=== PATIENT | male | born 1935 | race Caucasian/White ===

== ENCOUNTER 2016-11-01 03:44 | Inpatient (IN) | payer MEDICARE, OTHER ==
[~2016-11-01] VITALS: Ht 180.3 cm; Wt 76.0 kg
[2016-11-01] MEDS ORDERED: SODIUM CHLORIDE 0.9% 500 ML IVB ONE (10:58)
[2016-11-01 11:33] LABS: Basophils # (auto) 0.1 uL; Basophils % (auto) 0.9 % (0.0-2.0); Eosinophils # (auto) 0.1 uL; Eosinophils % (auto) 1.5 % (0.0-7.0); Hematocrit 41.6 % (41.0-53.0); Hemoglobin 13.5 g/dL (13.5-17.5); Lymphocytes # (auto) 1.2 uL; Mean Corpuscular Hemoglobin 32.8 pg (28.0-32.0); Mean Corpuscular Hgb Conc. 32.5 g/dL (32.0-36.0); Mean Corpuscular Volume 100.7 fL (80.0-100.0); Mean Platelet Volume 7.1 fL (7.4-10.4); Monocytes % (auto) 10.5 % (0.0-12.0); Neutrophils # (auto) 6.9 uL; Neutrophils % (auto) 74.1 % (37.0-80.0); Platelet Count (auto) 257 10^3/uL (140-450); Red Cell Distribution Width 14.1 % (11.6-16.0); White Blood Cell 9.3 10^3/uL (4.4-10.8)
[2016-11-01 11:57] LABS: Albumin 3.2 g/dL (3.4-5.0); BUN/Creatinine Ratio 14.7; Bilirubin, Total 0.5 mg/dL (0.2-1.0); Calcium 9.5 mg/dL (8.5-10.1); Magnesium 2.4 mg/dL (1.6-2.6); Potassium 4.6 mmol/L (3.5-5.1); Total Protein 6.9 g/dL (6.4-8.2)
[2016-11-01] MEDS ORDERED: MORPHINE SULF INJ 2 MG/ML SYRINGE 1ML IV PRN ×2 (12:00)
[2016-11-01] MEDS ORDERED: PROMETHAZINE HCL 25 MG/ML 1ML IV PRN (12:00)
[2016-11-01] MEDS ORDERED: HYDROcodone-ACET 5/325MG TAB PO PRN (12:00)
[2016-11-01] MEDS ORDERED: ACETAMINOPHEN 500 MG TAB PO PRN (12:00)
[2016-11-01] MEDS ORDERED: ALBUTEROL SULF 2.5 MG/0.5ML(0.5%) NEB SOLN NEB PRN (12:00)
[2016-11-01] MEDS ORDERED: LACTULOSE 20Gm/30ML SOLN PO PRN (12:00)
[2016-11-01] MEDS ORDERED: NITROGLYCERIN 0.4 MG SL TAB SL PRN (12:00)
[2016-11-01] MEDS ORDERED: LEVOFLOXACIN 500MG 100 ML IV ONE (12:29)
[2016-11-01] MEDS ORDERED: ASPirin 81 mg TAB PO ONE ×2 (12:30→14:00)
[2016-11-01] MEDS ORDERED: ATE50T PO (13:26)
[2016-11-01] MEDS ORDERED: [UNRECOGNIZED DRUG - CODE] PO (13:31)
[2016-11-01] MEDS ORDERED: CLOP75TA28 PO (13:31)
[2016-11-01] MEDS ORDERED: OMEP20CA5 PO (13:32)
[2016-11-01] MEDS ORDERED: DICL50TA4 PO (13:33)
[2016-11-01] MEDS ORDERED: DILT240C PO (13:34)
[2016-11-01] MEDS ORDERED: AMIT25TA9 PO (13:34)
[2016-11-01] MEDS ORDERED: ATOR1TAB PO (13:35)
[2016-11-01] MEDS ORDERED: TAM04C PO (13:36)
[2016-11-01] MEDS ORDERED: BACL10TA PO (13:36)
[2016-11-01 13:44] LABS: Temperature: 23.1 C (20.0-25.0)
[2016-11-01] MEDS ORDERED: ATENOLOL 50 MG TAB PO ONE (14:00)
[2016-11-01] MEDS ORDERED: CLOPIDOGREL BISULFATE 75 MG TAB PO ONE (14:00)
[2016-11-01] MEDS ORDERED: TAMSULOSIN HYDROCHLORIDE 0.4 MG CAP PO ONE (14:00)
[2016-11-01] MEDS ORDERED: AMITRIPTYLINE HCL 25 MG TAB PO ONE (14:00)
[2016-11-01] MEDS ORDERED: ENOXAPARIN SOD 40 MG/0.4 ML SYRINGE SC ONE (14:00)
[2016-11-01] MEDS ORDERED: DILTIAZEM HCL 180MG ER CAP PO ONE (14:00)
[2016-11-01] MEDS ORDERED: NITROGLYCERIN 6.5 MG PO ONE (14:00)
[2016-11-01] MEDS ORDERED: PANTOPRAZOLE 40 MG TAB PO ONE (14:00)
[2016-11-01] MEDS: BACLOFEN 10 MG TAB PO SCH ×2 (16:16→22:26)
[2016-11-01 17:18] VITALS: BP 159/83
[2016-11-01] MEDS: ALBUTEROL SULF 2.5 MG/0.5ML(0.5%) NEB SOLN NEB SCH (18:48)
[2016-11-01 21:45] VITALS: BP 159/83
[2016-11-01 22:00] VITALS: BP 135/78
[2016-11-01] MEDS ORDERED: DICLOFENAC SODIUM 75 MG PO SCH (22:00)
[2016-11-01] MEDS ORDERED: ATORVASTATIN 20 MG TAB PO SCH (22:00)
[2016-11-01] MEDS: VOLTAREN 75 MG PO SCH (22:00)
[2016-11-01] MEDS: ATORVASTATIN 20 MG TAB PO SCH (22:26)
[2016-11-01] MEDS: TAMSULOSIN HYDROCHLORIDE 0.4 MG CAP PO SCH (22:26)
[2016-11-01] MEDS: ATENOLOL 50 MG TAB PO SCH (22:29)
[2016-11-01] MEDS: ENOXAPARIN SOD 80 MG/0.8ML SYRINGE SC SCH (22:30)
[2016-11-01] MEDS: TEMAZEPAM 15 MG CAP PO PRN (22:37)
[2016-11-01] MEDS: AMITRIPTYLINE HCL 25 MG TAB PO SCH (22:42)
[2016-11-02] MEDS: LORazepam 0.5 MG TAB PO PRN ×2 (00:49→20:04)
[2016-11-02] MEDS: ALBUTEROL SULF 2.5 MG/0.5ML(0.5%) NEB SOLN NEB SCH ×4 (01:10→19:25)
[2016-11-02 05:00] VITALS: BP 133/71
[2016-11-02] MEDS: BACLOFEN 10 MG TAB PO SCH ×3 (07:35→22:14)
[2016-11-02 08:05] VITALS: BP 122/70
[2016-11-02] MEDS: VOLTAREN 75 MG PO SCH ×2 (10:00→22:00)
[2016-11-02] MEDS ORDERED: ENOXAPARIN SOD 40 MG/0.4 ML SYRINGE SC SCH (10:00)
[2016-11-02] MEDS ORDERED: PATIENTS OWN MEDICATION (Atorvastatin Calcium 1 TAB) PO SCH ×2 (10:00)
[2016-11-02] MEDS ORDERED: OMEPRAZOLE 20MG/10ML ORAL SUSP PO SCH (10:00)
[2016-11-02] MEDS ORDERED: LEVOFLOXACIN 250MG 50 ML IV SCH (10:00)
[2016-11-02] MEDS ORDERED: DILTIAZEM HCL 180 MG PO SCH (10:00)
[2016-11-02] MEDS: CLOPIDOGREL BISULFATE 75 MG TAB PO SCH (10:23)
[2016-11-02] MEDS: ENOXAPARIN SOD 80 MG/0.8ML SYRINGE SC SCH (10:23)
[2016-11-02] MEDS: DILTIAZEM HCL 180MG ER CAP PO SCH (10:24)
[2016-11-02] MEDS: PANTOPRAZOLE 40 MG TAB PO SCH (10:25)
[2016-11-02] MEDS: ASPirin 81 mg TAB PO SCH (10:25)
[2016-11-02] MEDS: ATENOLOL 50 MG TAB PO SCH ×2 (10:25→22:16)
[2016-11-02] MEDS: TAMSULOSIN HYDROCHLORIDE 0.4 MG CAP PO SCH ×2 (10:26→22:16)
[2016-11-02] MEDS: AMITRIPTYLINE HCL 25 MG TAB PO SCH ×2 (10:26→22:22)
[2016-11-02] MEDS: NITROGLYCERIN 6.5 MG PO SCH (10:52)
[2016-11-02 17:29] VITALS: BP 118/67
[2016-11-02 21:18] VITALS: BP_SYST 104; BP_SYST 121; BP_SYST 124; BP_DIAS 66; BP_DIAS 70; BP_DIAS 77
[2016-11-02 22:00] VITALS: BP 124/74
[2016-11-02] MEDS: ATORVASTATIN 20 MG TAB PO SCH (22:16)
[2016-11-02] MEDS: TEMAZEPAM 15 MG CAP PO PRN (22:16)
[2016-11-03] MEDS: ALBUTEROL SULF 2.5 MG/0.5ML(0.5%) NEB SOLN NEB SCH ×3 (00:40→13:31)
[2016-11-03 05:00] VITALS: BP 124/64
[2016-11-03] MEDS: BACLOFEN 10 MG TAB PO SCH ×2 (06:07→13:44)
[2016-11-03 08:15] LABS: Urine Bilirubin Negative (Negative); Urine Color Yellow (Yellow); Urine Glucose Normal (Normal); Urine Ketone Negative (Negative); Urine Nitrite Negative (Negative); Urine RBC 12 /hpf (0 - 3); Urine Squamous Epithelial Cell FEW /hpf (<5); Urine pH 6.5 (5.0-8.0)
[2016-11-03 08:16] LABS: Urine Blood 1+ /uL (Negative)
[2016-11-03 09:00] VITALS: BP 112/78
[2016-11-03] MEDS: AMITRIPTYLINE HCL 25 MG TAB PO SCH (09:24)
[2016-11-03] MEDS: PANTOPRAZOLE 40 MG TAB PO SCH (09:25)
[2016-11-03] MEDS: ASPirin 81 mg TAB PO SCH (09:25)
[2016-11-03] MEDS: CLOPIDOGREL BISULFATE 75 MG TAB PO SCH (09:25)
[2016-11-03] MEDS: TAMSULOSIN HYDROCHLORIDE 0.4 MG CAP PO SCH (09:25)
[2016-11-03] MEDS: NITROGLYCERIN 6.5 MG PO SCH (09:26)
[2016-11-03] MEDS: DILTIAZEM HCL 180MG ER CAP PO SCH (09:27)
[2016-11-03] MEDS: ATENOLOL 50 MG TAB PO SCH (09:27)
[2016-11-03] MEDS: VOLTAREN 75 MG PO SCH (09:28)
[2016-11-03 13:00] VITALS: BP 149/71
[2016-11-03] MEDS ORDERED: cefTRIAXone 1GM/50ML D5W 50 ML IV ONE (14:15)
[2016-11-03 15:27] VITALS: BP 112/73
[2016-11-03 17:00] VITALS: BP 107/68
[2016-11-04] MEDS ORDERED: cefTRIAXone 1GM/50ML D5W 50 ML IV SCH (09:00)
== END 2016-11-03 17:45 | disposition home or self-care (01) | DRG 69 ==
LOC: ER 03:46 → TELE 03:47 → TELE-WESTW 14:47
PROVIDERS: ADMIT Internal Medicine; ATTEND Internal Medicine Pulmonary Disease
DX: G45.9 Transient cerebral ischemic attack, unspecified (principal); N39.0 Urinary tract infection, site not specified; I48.92 Unspecified atrial flutter; I25.119 Atherosclerotic heart disease of native coronary artery with unspecified angina pectoris; W18.30XA Fall on same level, unspecified, initial encounter; I73.9 Peripheral vascular disease, unspecified; E78.5 Hyperlipidemia, unspecified; I10 Essential (primary) hypertension; K27.9 Peptic ulcer, site unspecified, unspecified as acute or chronic, without hemorrhage or perforation; N20.0 Calculus of kidney; N40.0 Benign prostatic hyperplasia without lower urinary tract symptoms; Z66 Do not resuscitate; Z82.0 Family history of epilepsy and other diseases of the nervous system; Z82.3 Family history of stroke; Z82.49 Family history of ischemic heart disease and other diseases of the circulatory system; Y93.89 Activity, other specified; Y92.89 Other specified places as the place of occurrence of the external cause; Y99.8 Other external cause status; Z90.89 Acquired absence of other organs; Z98.49 Cataract extraction status, unspecified eye; Z79.899 Other long term (current) drug therapy; Z98.890 Other specified postprocedural states; Z81.8 Family history of other mental and behavioral disorders
CPT/HCPCS: 36415; 70450; 71010; 78582; 80053; 81001; 82550; 82607; 82746; 83735; 84443; 84484; 85025; 85379; 85652; 86141; 87086; 87205; 93005; 93306; 93886; 93970; 94640; 95819; 96361; 96374; 96375; G0434; J0696; J1956

== ENCOUNTER 2016-12-03 02:00 | Emergency (ER) | payer MEDICARE, OTHER ==
[~2016-12-03] VITALS: Ht 177.8 cm; Wt 72.6 kg
[~2016-12-03 02:00] MED LIST: AMIT25TA9 PO; ATE50T PO; ATOR1TAB PO; BACL10TA PO; CLOP75TA28 PO; DICL50TA4 PO; DILT240C PO; OMEP20CA5 PO; TAM04C PO; [UNRECOGNIZED DRUG - CODE] PO
[2016-12-03 04:34] LABS: Urine RBC None Seen /hpf (0 - 3)
[2016-12-03 05:20] LABS: Urine Bilirubin Negative (Negative); Urine Blood Negative /uL (Negative); Urine Color Yellow (Yellow); Urine Glucose Normal (Normal); Urine Ketone Negative (Negative); Urine Nitrite Negative (Negative); Urine Urobilinogen Normal (Negative)
[2016-12-03 05:26] LABS: Basophils # (auto) 0 uL; Basophils % (auto) 0.2 % (0.0-2.0); Eosinophils # (auto) 0.1 uL; Eosinophils % (auto) 0.9 % (0.0-7.0); Hematocrit 47.8 % (41.0-53.0); Hemoglobin 15.4 g/dL (13.5-17.5); Lymphocytes # (auto) 1.2 uL; Mean Corpuscular Hemoglobin 32.5 pg (28.0-32.0); Mean Corpuscular Hgb Conc. 32.2 g/dL (32.0-36.0); Mean Corpuscular Volume 100.8 fL (80.0-100.0); Mean Platelet Volume 7.5 fL (7.4-10.4); Monocytes # (auto) 0.4 uL; Monocytes % (auto) 4.3 % (0.0-12.0); Neutrophils # (auto) 8.2 uL; Neutrophils % (auto) 82.6 % (37.0-80.0); Platelet Count (auto) 249 10^3/uL (140-450); Red Cell Distribution Width 14.7 % (11.6-16.0); White Blood Cell 9.9 10^3/uL (4.4-10.8)
[2016-12-03 05:38] LABS: Albumin 3.7 g/dL (3.4-5.0); BUN/Creatinine Ratio 17.8; Calcium 9.2 mg/dL (8.5-10.1); Potassium 4.1 mmol/L (3.5-5.1)
[2016-12-03 05:41] LABS: Bilirubin, Total 0.5 mg/dL (0.2-1.0); Total Protein 7.2 g/dL (6.4-8.2)
[2016-12-03 07:54] VITALS: BP 144/65
[2016-12-04 15:10] LABS: PSA Free 0.15 ng/mL; Prostate Specific Antigen 0.6 ng/mL (0.0-4.0)
== END 2016-12-03 08:37 | disposition home or self-care (01) ==
LOC: ER 02:00
DX: R33.9 Retention of urine, unspecified (principal); N40.0 Benign prostatic hyperplasia without lower urinary tract symptoms; E78.5 Hyperlipidemia, unspecified; I10 Essential (primary) hypertension; I73.9 Peripheral vascular disease, unspecified
CPT/HCPCS: 36415; 51702; 74176; 80053; 81001; 84154; 85025; 94761

== ENCOUNTER 2016-12-09 04:53 | Emergency (ER) | payer MEDICARE, OTHER ==
[~2016-12-09] VITALS: Ht 180.3 cm; Wt 79.4 kg
[2016-12-09 05:56] VITALS: BP 148/88
[2016-12-09 06:45] LABS: Urine Bilirubin Negative (Negative); Urine Blood Negative /uL (Negative); Urine Color Yellow (Yellow); Urine Glucose Normal (Normal); Urine Ketone Negative (Negative); Urine Nitrite Negative (Negative); Urine RBC 3 /hpf (0 - 3); Urine Squamous Epithelial Cell FEW /hpf (<5); Urine Urobilinogen Normal (Negative); Urine pH 7.5 (5.0-8.0)
== END 2016-12-09 07:36 | disposition home or self-care (01) ==
LOC: ER 04:56
DX: N40.0 Benign prostatic hyperplasia without lower urinary tract symptoms (principal); K21.9 Gastro-esophageal reflux disease without esophagitis; I73.9 Peripheral vascular disease, unspecified; E78.5 Hyperlipidemia, unspecified; I10 Essential (primary) hypertension; Z79.899 Other long term (current) drug therapy
CPT/HCPCS: 81001

== ENCOUNTER 2017-03-28 02:25 | Emergency (ER) | payer MEDICARE, OTHER ==
[~2017-03-28] VITALS: Ht 180.3 cm; Wt 77.1 kg
[~2017-03-28 02:25] MED LIST changes: -OMEP20CA5 PO; +OMEP20CA74 PO
[2017-03-28 07:37] LABS: Urine Bilirubin Negative (Negative); Urine Blood Negative /uL (Negative); Urine Color Yellow (Yellow); Urine Glucose Normal (Normal); Urine Ketone Negative (Negative); Urine Mucus FEW (None Seen); Urine Nitrite Negative (Negative); Urine RBC 1 /hpf (0 - 3); Urine Urobilinogen Normal (Negative)
[2017-03-28 10:30] VITALS: BP 140/89
== END 2017-03-28 12:11 | disposition home or self-care (01) ==
LOC: ER 02:25
DX: N40.0 Benign prostatic hyperplasia without lower urinary tract symptoms (principal); R33.9 Retention of urine, unspecified; K21.9 Gastro-esophageal reflux disease without esophagitis; E78.5 Hyperlipidemia, unspecified; I10 Essential (primary) hypertension; F12.10 Cannabis abuse, uncomplicated; Z87.440 Personal history of urinary (tract) infections; Z79.899 Other long term (current) drug therapy
CPT/HCPCS: 51702; 81001; 93005

== ENCOUNTER 2017-07-03 06:42 | Emergency (ER) | payer MEDICARE, OTHER ==
[~2017-07-03] VITALS: Ht 182.9 cm; Wt 79.6 kg
[2017-07-03 07:36] LABS: Urine Bilirubin Negative (Negative); Urine Blood 2+ /uL (Negative); Urine Color Yellow (Yellow); Urine Glucose Normal (Normal); Urine Ketone Negative (Negative); Urine Mucus FEW (None Seen); Urine Nitrite POSITIVE (Negative); Urine RBC 22 /hpf (0 - 3); Urine Urobilinogen Normal (Negative); Urine pH 8.5 (5.0-8.0)
[2017-07-03] MEDS ORDERED: SODIUM CHLORIDE 0.9% 1,000 ML IV ONE (07:56)
[2017-07-03] MEDS ORDERED: cefTRIAXone 1GM/50ML D5W 50 ML IV ONE (08:15)
[2017-07-03] MEDS ORDERED: PHENAZOPYRIDINE HCL 100 MG TAB PO ONE (08:15)
[2017-07-03 08:53] LABS: Basophils # (auto) 0 uL; Basophils % (auto) 0.3 % (0.0-2.0); CONDITION Y; Eosinophils # (auto) 0.2 uL; Eosinophils % (auto) 2.3 % (0.0-7.0); Hematocrit 41.3 % (41.0-53.0); Hemoglobin 13.8 g/dL (13.5-17.5); Lymphocytes # (auto) 1.1 uL; Lymphocytes % (auto) 13.8 % (10.0-50.0); Mean Corpuscular Hgb Conc. 33.5 g/dL (32.0-36.0); Mean Corpuscular Volume 101.3 fL (80.0-100.0); Mean Platelet Volume 7.3 fL (7.4-10.4); Monocytes # (auto) 0.6 uL; Monocytes % (auto) 7.1 % (0.0-12.0); Neutrophils # (auto) 6.2 uL; Neutrophils % (auto) 76.5 % (37.0-80.0); Platelet Count (auto) 264 10^3/uL (140-450); Red Cell Distribution Width 14.1 % (11.6-16.0); White Blood Cell 8.1 10^3/uL (4.4-10.8)
[2017-07-03 09:08] LABS: BUN/Creatinine Ratio 32.1; Calcium 8.9 mg/dL (8.5-10.1); Magnesium 2.3 mg/dL (1.6-2.6); Potassium 4.2 mmol/L (3.5-5.1)
[2017-07-03 10:41] VITALS: BP 118/78
== END 2017-07-03 10:51 | disposition home or self-care (01) ==
LOC: EDBD 06:42 → ER 06:42
DX: N40.1 Benign prostatic hyperplasia with lower urinary tract symptoms (principal); N32.89 Other specified disorders of bladder; N39.0 Urinary tract infection, site not specified; K21.9 Gastro-esophageal reflux disease without esophagitis; E78.5 Hyperlipidemia, unspecified; Z79.899 Other long term (current) drug therapy
CPT/HCPCS: 36415; 80048; 81001; 83735; 85025; 96365; 99284; J0696; J7030

== ENCOUNTER → 2018-12-12 | Emergency (ER) | payer MEDICARE, OTHER | END | disposition left against medical advice (07) | LOC: ER 02:07 | DX: R30.0 Dysuria (principal); Z53.21 Procedure and treatment not carried out due to patient leaving prior to being seen by health care provider ==